=== PATIENT | male | born 1980 | race Caucasian/White ===

== ENCOUNTER 2024-09-10 10:23 | Emergency (ER) | payer SELFPAY ==
[2024-09-10] VITALS (10 sets, daily range): BP systolic 125–157; BP diastolic 81–98; PULSE 68–94; RESP 12–24; TEMP 36.6–36.7; O2SAT 91–100; BMI 26.4
--- NOTE | 2024-09-10 10:25 | ECG_ITS ---
APPROVED REPORT Exam: Resting ECG HR:66 bpm ECG Measurements Heart Rate 66 AXES NC 138 P 55 QRSd 108 QRS 31 QT 376 T 45 QTc 389 Conclusion SINUS RHYTHM NORMAL ECG UNCONFIRMED REPORT Electronically signed by : Sergey Lopez, 09/10/2024 15:15:14
--- NOTE | 2024-09-10 11:00 | CT_ITS ---
FINAL REPORT TECHNIQUE: Axial imaging of the chest is obtained after the administration of contrast. 3-D MIP reformatted images were also obtained and reviewed per PE protocol. This study was performed with techniques to keep radiation doses as low as reasonably achievable, (ALARA). Individualized dose reduction techniques using automated exposure control or adjustment of mA and/or kV according to the patient's size were employed. CLINICAL HISTORY: chest pain radiating to the back FINDINGS: The pulmonary arteries are well filled. There is no evidence of central pulmonary embolus. There is no aortic dissection. Heart size is normal. There is no mediastinal, hilar, or axillary lymphadenopathy. The lungs are clear. There is no pleural or pericardial effusion. Limited evaluation of the upper abdomen is without acute abnormality. No acute osseous abnormality. IMPRESSION: No evidence of pulmonary embolism or aortic dissection. Reviewed, Interpreted and Dictated by Danyell Crawford MD Transcribed by Nona Baker Authenticated and [facility]
--- NOTE | 2024-09-10 11:02 | [facility].EDCP ---
Discharge Plan Disposition Patient Disposition: Home, Self-Care Referrals Follow up/Referrals: Sunny Parikh MD [Staff Physician] - See instructions Provider,MD Jericho [Primary Care Provider] - See instructions Activity Restrictions/Add. Instructions Additional Instructions/Restrictions: No evidence of an acute cardiopulmonary emergency noted today. You are cleared to go back to shelter. I do recommend that you closely follow-up with a jewelry racker a referral has been made to Dr. Parikh's team here at [facility]. Clinical Impressions Clinical Impression: Chest pain Print Language Print Language: Kyrgyz Discharge ED Provider: Payam Lopez [facility] General Chief Complaint: Chest Pain Stated Complaint: chest pain Time Seen by Provider: 09/10/24 10:52 Mode of Arrival: EMS Source of Information: Patient and EMS Description of Symptoms (Recalled from ER Triage Doc. by RN): pt presents to ED with c/o chest pain. pt reports that his chest pain is located in right chest with radiation into shoulder. symptoms intermittent for the past few weeks. pt reports lightheaded and dizzy associated with chest pain today. History of Present Illness HPI narrative: Patient is a 44-year-old male with a history of hypertension and diabetes who presents today with chest pain. Was arrested on Monday states he was having chest pain at that time went to the [facility] emergency department and was ruled out for any acute pathology states. He has been in custody and was coming down from his shelter cell today and about 10 AM states that he had sudden chest pain that brought him to his knees almost felt like he was can lose consciousness. States the pain is in the substernal and left anterior aspect of his chest wall radiating through to his back. He had nitroglycerin a few days ago without any improvement has no history of any coronary artery disease has not had a stress test or a cath in the past. Denies any dyspnea associated with this no fevers or chills cough etc. Does have a remote history of cocaine use but nothing recently. Related Data Allergies Allergy/AdvReac Type Severity Reaction Status Date / Time azithromycin Allergy Hives Verified 09/10/24 10:34 [facility] Disclaimer: The information contained in this section may have been updated after the patient was seen, as this information can be updated by other users. Social History Smoking Status: Current every day smoker alcohol intake: never current occupational status: other Travel in the last 8 weeks?: None ROS Obtained: Yes All systems reviewed & no additional complaints except as documented Physical Exam General General appearance: alert Respiratory Respiratory exam: Present normal lung sounds bilaterally; Absent respiratory distress Cardiovascular Cardiovascular exam: Present regular rate and normal rhythm Neurological Exam Neurological exam: Present alert HEART Score HEART Score HEART Score assessment performed?: Yes History (anamnesis): Slightly suspicious ECG: Normal Age: 45-65 years Risk factors: 1-2 risk factors Troponin: </= normal limit HEART Score: 2 Critical Care Critical Care Time Critical Care Time: No Medical Decision Making Jesus Inquiry Pt receiving controlled substance: No Vital Signs Vital Signs: 09/10/24 10:24 09/10/24 10:29 09/10/24 10:31 Temperature 98.0 F Temperature Source Oral Pulse Rate 77 72 Pulse Rate [Left Radial] 68 Respiratory Rate 12 20 15 Blood Pressure 129/96 H 125/90 Blood Pressure [Right Arm] 129/96 H Blood Pressure Mean 105 107 Blood Pressure Mean [Right Arm] 107 Blood Pressure Source [Right Arm] Automatic Cuff Blood Pressure Position [Right Arm] Supine 02 Sat by Pulse Oximetry 91 L 96 91 L Oxygen Delivery Method Room Air 09/10/24 11:01 09/10/24 13:01 09/10/24 13:30 Temperature Temperature Source Pulse Rate 81 76 Pulse Rate [Left Radial] Respiratory Rate 20 16 15 Blood Pressure 157/81 H 145/98 H 139/89 Blood Pressure [Right Arm] Blood Pressure Mean Blood Pressure Mean [Right Arm] Blood Pressure Source [Right Arm] Blood Pressure Position [Right Arm] 02 Sat by Pulse Oximetry 100 98 Oxygen Delivery Method Room Air 09/10/24 14:00 09/10/24 14:30 09/10/24 15:00 Temperature Temperature Source Pulse Rate 75 69 Pulse Rate [Left Radial] Respiratory Rate 20 21 24 Blood Pressure 142/95 H 131/83 146/87 H Blood Pressure [Right Arm] Blood Pressure Mean Blood Pressure Mean [Right Arm] Blood Pressure Source [Right Arm] Blood Pressure Position [Right Arm] 02 Sat by Pulse Oximetry 100 97 Oxygen Delivery Method Lab Data Lab results reviewed: Yes I reviewed the patient's lab results. Labs: Lab Results 09/10/24 10:38: WBC 10.9 H, RBC 5.03, Hgb 16.9, Hct 45.9, MCV 91.3, MCH 33.6 H, MCHC 36.8 H, RDW 12.1, Plt Count 339, MPV 10.1, Neut % (Auto) 77.0, Lymph % (Auto) 14.4, Trinity % (Auto) 7.0, Eos % (Auto) 0.6, Baso % (Auto) 0.5, Neut # (Auto) 8.4 H, Lymph # (Auto) 1.6, Trinity # (Auto) 0.8, Eos # (Auto) 0.1, Baso # (Auto) 0.1, Sodium 134 L, Potassium 4.1, Chloride 105, Carbon Dioxide 23, Anion Gap 10.1, BUN 12, Creatinine 0.60 L, Estimated Creat Clear 188, Estimated GFR 145, Est GFR ( Amer) 176, Glucose 261 H, Calcium 9.4, Total Bilirubin 0.9, AST 30, ALT 24, Alkaline Phosphatase 114, Troponin I < 0.01, NT-Pro-B Natriuret Pep < 20.0, Total Protein 7.3, Albumin 4.5, Globulin 2.8, Albumin/Globulin Ratio 1.6, Lipase 40 09/10/24 14:02: Troponin I < 0.01 09/10/24 10:38 09/10/24 10:38 Response Orders (Tests/Meds): ED MEDICATIONS Discontinued Medications Generic Name Dose Route Start Last Admin Trade Name Mingq PRN Reason Stop Dose Admin Sodium Chloride 1,000 mls @ 999 mls/hr 09/10/24 11:00 09/10/24 11:24 Sod Chlor 0.9% 1000ml Bag IV 09/10/24 12:00 999 mls/hr .Q1H1M KELLY Administration Iopamidol 85 ml 09/10/24 13:05 09/10/24 13:06 Iopamidol-370 (76%);100ml Bottle IV 09/10/24 13:06 85 ml ONCE ONE Administration Ketorolac Tromethamine 15 mg 09/10/24 11:00 09/10/24 11:24 Ketorolac 30mg/Ml Vial IV 09/10/24 11:01 15 mg ONCE ONE Administration Sodium Chloride 10 ml 09/10/24 13:05 09/10/24 13:06 Sodium Chloride 0.9% 10ml Syr (Rad Only) IV 09/10/24 13:06 10 ml ONCE ONE Administration Sodium Chloride 50 ml 09/10/24 13:05 09/10/24 13:05 0.9 % Sodium Chloride 50 Ml Vial IV 09/10/24 13:06 50 ml ONCE ONE Administration ORDERS Category Date Time Status CT angio chest - dissection Stat Cat Scan 09/10/24 11:00 Completed BNP [NT Pro Brain Natriuretic Pep.] Stat Lab 09/10/24 10:38 Completed CBC w/Auto Diff [Complete Blood Count Auto Diff] Stat Lab 09/10/24 10:38 Completed CMP [Comprehensive Metabolic Panel] Stat Lab 09/10/24 10:38 Completed Lipase Stat Lab 09/10/24 10:38 Completed Trop I [Troponin I] Stat Lab 09/10/24 10:38 Completed Troponin I Q3H Lab 09/10/24 14:02 Completed Troponin I Q3H Lab 09/10/24 17:00 Ordered ECG Data Tracing #1: Attestation: I reviewed this ECG and interpreted as documented below: ECG Narrative: Ventricular rate of 66 normal sinus rhythm no acute ischemic changes noted normal axis no significant conduction abnormalities noted MDM Narrative Medical Decision Narrative: Patient with above history and physical currently in custody with the police detention attendant at the bedside presents today with chest pain radiating through to his back differential includes aortic dissection pulmonary embolism acute coronary syndrome myocarditis etc. Will get serial troponins and place the patient in ED observation as his initial EKG is nonischemic. Additionally we will get a CT angio of the chest to rule out an aortic dissection. Patient is already had aspirin earlier today and is asking for more pain medication states that he did not get better with nitroglycerin recently therefore dose of Toradol has been given. I suspect this is most likely not cardiac in nature. Patient was placed in ED observation serial troponins were negative patient very stable on my reassessment clinically CT scan was performed which I personally interpreted shows no evidence of any aortic dissection pulmonary embolism etc. Overall emergencies have been ruled out at this point. EKG was nonischemic as stated above. Patient's been advised to follow-up with jewelry racker outpatient and he was cleared to go back to shelter.
[2024-09-10 11:09] LABS: Albumin Level 4.5 g/dl (3.5-5.0); Chloride 105 mmol/L (98-107); Sodium 134 mmol/L (136-145)
[2024-09-10 11:10] LABS: Potassium 4.1 mmoL/L (3.5-5.1)
[2024-09-10 11:12] LABS: Alanine Aminotransferase 24 U/L (12-78); Alkaline Phosphatase 114 U/L (38-126); Anion Gap 10.1 mEq/L (5-15); Aspartate Amino Transferase 30 U/L (17-59); Bilirubin,Total 0.9 mg/dl (0.2-1.3); Blood Urea Nitrogen 12 mg/dl (9-20); Carbon Dioxide 23 mmol/L (22.0-30.0); Creatinine Clearance Estimated 188 mL/min (50-200); Estimated Glomerular Filt Rate 145 ml/min (>60); GFR (African American) 176 ML/MIN (>60)
[2024-09-10 11:13] LABS: Albumin/Globulin Ratio 1.6 (1.1-1.8); Basophils # 0.1 K/mm3 (0-0.2); Basophils % 0.5 % (0.1-2.0); Calcium 9.4 mg/dl (8.4-10.2); Eosinophils # 0.1 Kmm3 (0.0-0.4); Eosinophils % 0.6 % (0.1-12.0); Globulin 2.8 g/dL (1.3-3.2); Glucose 261 mg/dl (74-100); Hematocrit 45.9 % (42.0-52.0); Hemoglobin 16.9 g/dL (14.1-18.0); Immature Granulocytes # 0.05 10^3uL; Immature Granulocytes % 0.5 %; Lipase 40 U/L (23-300); Lymphocytes # 1.6 K/mm3 (0.7-4.5); Lymphocytes % 14.4 % (10-50); Mean Corpuscular HGB Conc 36.8 g/dL (31.8-35.4); Mean Corpuscular Hemoglobin 33.6 pg (27.0-31.2); Mean Corpuscular Volume 91.3 fl (80-94); Mean Platelet Volume 10.1 fl (7.4-10.4); Monocytes # 0.8 K/mm3 (0.1-1.0); Neutrophils # 8.4 K/mm3 (1.8-7.8); Nucleated Red Blood Cells # 0 10^3/uL; Nucleated Red Blood Cells % 0 %; Platelet Count 339 K/mm3 (142-424); Red Blood Count 5.03 M/mm3 (4.60-6.20); Red Cell Distribution Width 12.1 % (11.5-17.5); Red Cell Distribution Width-SD 40.2 fL; Total Protein,Serum 7.3 g/dl (6.3-8.2); White Blood Count 10.9 K/mm3 (4.8-10.8)
[2024-09-10 11:22] LABS: NT Pro Brain Natriuretic Pep. < 20.0 pg/mL (0-125)
[2024-09-10] MEDS: KETOROLAC 30MG/ML VIAL 15 MG IV (11:24)
[2024-09-10] MEDS: 0.9 % SODIUM CHLORIDE 1000ML 1,000 ML 999 ML IV (11:24)
[2024-09-10 11:29] LABS: Troponin I < 0.01 ng/ml (0.00-0.034)
--- NOTE | 2024-09-10 12:02 | HMH.ITSTN ---
ER to call when pt is ready
--- NOTE | 2024-09-10 13:01 | PC.NURSE ---
provided patient with food and drink at this time.
[2024-09-10] MEDS: 0.9 % SODIUM CHLORIDE 50 ML VIAL IV (13:05)
[2024-09-10] MEDS: SODIUM CHLORIDE 0.9% 10ML SYR (RAD ONLY) 10 ML IV (13:06)
[2024-09-10] MEDS: IOPAMIDOL-370 (76%);100ML BOTTLE 85 ML IV (13:06)
[2024-09-10 14:47] LABS: Troponin I < 0.01 ng/ml (0.00-0.034)
== END 2024-09-10 15:26 | disposition home or self-care (01) ==
PROVIDERS: Emergency Provider Student in an Organized Health Care Education/Training Program
DX: R07.89 Other chest pain (principal); R42 Dizziness and giddiness; I10 Essential (primary) hypertension; E11.65 Type 2 diabetes mellitus with hyperglycemia
CPT/HCPCS: 71275; 80053; 83690; 83880; 84484; 85025; 93005; 96361; 96374; 99284; J1885; J7030; Q9967